=== PATIENT | male | born 1985 | race Caucasian/White ===

== ENCOUNTER 2021-05-22 04:20 | Emergency (ER) | payer OTHER ==
[~2021-05-22] VITALS: Ht 182.9 cm; Wt 102.1 kg
--- NOTE | 2021-05-22 04:20 | NUR ---
LAUREANO SAINZ, PREBOOK. TAKEN TO CHAIR C
--- NOTE | 2021-05-22 04:27 | NUR ---
Dr. Sheikh examining patient.
[2021-05-22 04:34] VITALS: BP 156/78
[2021-05-22 04:38] VITALS: BP 156/78
== END 2021-05-22 04:38 ==
LOC: EDSEX 04:20 → MED 04:20
DX: R51.9 Headache, unspecified (principal); F10.129 Alcohol abuse with intoxication, unspecified; Z02.89 Encounter for other administrative examinations; V98.8XXA Other specified transport accidents, initial encounter; Y93.89 Activity, other specified; Y92.89 Other specified places as the place of occurrence of the external cause; Y99.8 Other external cause status
CPT/HCPCS: 99283